=== PATIENT | female | born 2000 | race Caucasian/White ===

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

== ENCOUNTER → 2020-04-10 | Outpatient (CLI) | payer OTHER | LOC: ZCOL.LAB 14:30 | DX: Z20.828 Contact with and (suspected) exposure to other viral communicable diseases (principal) ==

== ENCOUNTER 2021-06-28 21:53 | Emergency (ER) | payer OTHER ==
[~2021-06-28] VITALS: Ht 177.8 cm; Wt 59.1 kg
[2021-06-28 21:56] VITALS: TEMP 98.7
[2021-06-28] MEDS ORDERED: CEPHALEXIN500 M1 PO (22:13)
[2021-06-28 22:30] VITALS: BP 144/70; PULSE 67
== END 2021-06-28 22:30 | disposition home or self-care (01) ==
LOC: COL.ER 21:53
DX: M79.89 Other specified soft tissue disorders (principal)

== ENCOUNTER 2021-11-02 21:15 | Emergency (ER) | payer OTHER ==
[~2021-11-02] VITALS: Ht 177.8 cm; Wt 61.4 kg
[2021-11-02 21:22] VITALS: TEMP 98.4
[2021-11-02 22:41] VITALS: BP 120/85; PULSE 83
== END 2021-11-02 22:45 | disposition home or self-care (01) ==
LOC: COL.ER 21:15
DX: F41.0 Panic disorder [episodic paroxysmal anxiety] (principal); Z32.02 Encounter for pregnancy test, result negative

== ENCOUNTER 2022-04-13 00:41 | Emergency (ER) | payer OTHER ==
[~2022-04-13] VITALS: Ht 177.8 cm; Wt 61.4 kg
[2022-04-13 00:46] VITALS: BP 119/81; TEMP 98.1
[2022-04-13 01:35] VITALS: PULSE 92
== END 2022-04-13 01:35 | disposition home or self-care (01) ==
LOC: COL.ER 00:41
DX: S63.91XA Sprain of unspecified part of right wrist and hand, initial encounter (principal); V86.69XA Passenger of other special all-terrain or other off-road motor vehicle injured in nontraffic accident, initial encounter; Y92.410 Unspecified street and highway as the place of occurrence of the external cause
CPT/HCPCS: J1885